=== PATIENT | male | born 1985 | race Caucasian/White ===

== ENCOUNTER 2020-12-15 21:39 | Emergency (ER) | payer SELFPAY ==
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
[2020-12-15 22:00] VITALS: BP 170/100; PULSE 87; RESP 20; TEMP 36.7; O2SAT 97
[2020-12-15] MEDS: TETANUS,DIPHTHERIA,AC PERTUSSIS ADULT 0.5 ML (ADACEL) IM (22:09)
[2020-12-15] MEDS: IBUPROFEN 400 MG TABLET PO (22:22)
[2020-12-15 22:23] VITALS: PULSE 83; RESP 20; O2SAT 98
== END 2020-12-15 22:25 | disposition home or self-care (01) ==
PROVIDERS: Emergency Provider Emergency Medicine
DX: S01.81XA Laceration without foreign body of other part of head, initial encounter (principal); W45.8XXA Other foreign body or object entering through skin, initial encounter
CPT/HCPCS: 12011; 90471; 90715; 99282; A9270